=== PATIENT | male | born 1965 | race Caucasian/White ===

== ENCOUNTER 2017-08-05 06:30 | Outpatient (CLI) | payer OTHER ==
[~2017-08-05 06:30] MED LIST: CELEXA10 MG; CELEXA20 MG; CELEXA20 MG PO; COZAAR50 MG; COZAAR50 MG PO; GEMFIBROZIL600 MG; GEMFIBROZIL600 MG PO; GLIMEPIRIDE4 MG; GLIMEPIRIDE4 MG PO; GLUMETZA1000 MG PO; HYDROCHLOROTH12.5 M1 PO; HYDROCHLOROTH12.5 MG; HYDROCHLOROTH12.5 MG PO; IBUPROFEN800 MG PO; JANUMET XR 1001 EACH; JANUMET XR 1001 EACH PO; LEVAQUIN750 MG PO; METFORMIN 1000MG PO; METFORMIN HCL1000 MG PO; SEPTRA DS TABLE1 TAB PO; VOLTAREM 50 MG
== END 2017-08-05 06:48 | disposition home or self-care (01) ==
LOC: LAB 06:30
DX: E11.65 Type 2 diabetes mellitus with hyperglycemia (principal)

== ENCOUNTER 2017-11-04 07:06 | Outpatient (CLI) | payer OTHER | END 2017-11-04 07:11 | disposition home or self-care (01) | LOC: LAB 07:06 | DX: E11.65 Type 2 diabetes mellitus with hyperglycemia (principal) ==

== ENCOUNTER → 2018-03-06 06:31 | Outpatient (CLI) | payer OTHER | END | disposition home or self-care (01) | LOC: LAB 06:31 | DX: E78.2 Mixed hyperlipidemia (principal); E89.0 Postprocedural hypothyroidism; E11.65 Type 2 diabetes mellitus with hyperglycemia ==

== ENCOUNTER 2018-07-07 06:53 | Outpatient (CLI) | payer OTHER | END 2018-07-07 09:10 | disposition home or self-care (01) | LOC: LAB 06:53 | DX: E11.65 Type 2 diabetes mellitus with hyperglycemia (principal); E78.00 Pure hypercholesterolemia, unspecified ==

== ENCOUNTER 2018-10-06 06:31 | Outpatient (CLI) | payer OTHER | END 2018-10-06 09:30 | disposition home or self-care (01) | LOC: LAB 06:31 | DX: E03.8 Other specified hypothyroidism (principal); E11.65 Type 2 diabetes mellitus with hyperglycemia; E73.0 Congenital lactase deficiency; N41.8 Other inflammatory diseases of prostate ==

== ENCOUNTER 2018-11-27 08:18 | Emergency (ER) | payer OTHER ==
[~2018-11-27] VITALS: Ht 182.9 cm; Wt 115.2 kg
[2018-11-27] MEDS ORDERED: ATACAND16 MG (09:54)
[2018-11-27] MEDS ORDERED: FARXIGA10 MG (09:54)
[2018-11-27] MEDS ORDERED: MEDROLPACK PO (12:23)
== END 2018-11-27 12:30 | disposition home or self-care (01) ==
LOC: ER 08:18
DX: G51.0 Bell's palsy (principal); I10 Essential (primary) hypertension; R68.89 Other general symptoms and signs; I87.2 Venous insufficiency (chronic) (peripheral)

== ENCOUNTER 2019-01-01 09:07 | Outpatient (CLI) | payer OTHER ==
[~2019-01-01 09:07] MED LIST changes: +ATACAND16 MG; +FARXIGA10 MG; +MEDROLPACK PO
== END 2019-01-01 09:11 | disposition home or self-care (01) ==
LOC: CERTIFICAD 09:07 → LAB 09:07
DX: Z11.3 Encounter for screening for infections with a predominantly sexual mode of transmission (principal)

== ENCOUNTER 2019-02-08 06:52 | Outpatient (CLI) | payer OTHER | END 2019-02-08 06:59 | disposition home or self-care (01) | LOC: LAB 06:52 | DX: E11.65 Type 2 diabetes mellitus with hyperglycemia (principal); E78.00 Pure hypercholesterolemia, unspecified ==

== ENCOUNTER 2019-05-10 07:26 | Outpatient (CLI) | payer OTHER | END 2019-05-10 15:25 | disposition home or self-care (01) | LOC: LAB 07:26 | DX: E11.65 Type 2 diabetes mellitus with hyperglycemia (principal); E78.00 Pure hypercholesterolemia, unspecified ==

== ENCOUNTER 2019-07-15 08:44 | Outpatient (CLI) | payer OTHER | END 2019-07-15 14:22 | disposition home or self-care (01) | LOC: LAB 08:44 | DX: J11.1 Influenza due to unidentified influenza virus with other respiratory manifestations (principal); J06.9 Acute upper respiratory infection, unspecified ==

== ENCOUNTER 2019-09-29 10:39 | Outpatient (CLI) | payer OTHER | END 2019-09-29 15:52 | disposition home or self-care (01) | LOC: MRI 10:39 | DX: M51.26 Other intervertebral disc displacement, lumbar region (principal); M51.36 Other intervertebral disc degeneration, lumbar region | CPT/HCPCS: 72148 ==

== ENCOUNTER 2019-10-19 07:53 | Outpatient (CLI) | payer OTHER | END 2019-10-19 12:58 | disposition home or self-care (01) | LOC: LAB 07:53 | DX: G62.89 Other specified polyneuropathies (principal); R20.2 Paresthesia of skin; E03.8 Other specified hypothyroidism; E11.9 Type 2 diabetes mellitus without complications; E78.1 Pure hyperglyceridemia ==

== ENCOUNTER 2020-01-31 07:40 | Outpatient (CLI) | payer OTHER | END 2020-01-31 15:00 | disposition home or self-care (01) | LOC: LAB 07:40 | DX: I10 Essential (primary) hypertension (principal) ==

== ENCOUNTER 2020-02-15 09:00 | Outpatient (CLI) | payer OTHER | END 2020-02-15 18:00 | disposition home or self-care (01) | LOC: PPH VACUNA 09:00 | DX: Z23 Encounter for immunization (principal) ==

== ENCOUNTER 2020-03-08 14:22 | Outpatient (CLI) | payer OTHER | END 2020-03-08 14:39 | disposition home or self-care (01) | LOC: LAB 14:22 | DX: E11.65 Type 2 diabetes mellitus with hyperglycemia (principal); E05.80 Other thyrotoxicosis without thyrotoxic crisis or storm; Z12.11 Encounter for screening for malignant neoplasm of colon; Z11.4 Encounter for screening for human immunodeficiency virus [HIV] ==

== ENCOUNTER 2020-05-18 12:51 | Outpatient (CLI) | payer OTHER | END 2020-05-18 15:00 | disposition home or self-care (01) | LOC: PPH VACUNA 12:51 | DX: Z23 Encounter for immunization (principal) ==

== ENCOUNTER 2020-07-17 07:26 | Outpatient (CLI) | payer OTHER | END 2020-07-17 17:45 | disposition home or self-care (01) | LOC: LAB 07:26 | PROVIDERS: ATTEND Internal Medicine | DX: E03.8 Other specified hypothyroidism (principal); E11.65 Type 2 diabetes mellitus with hyperglycemia; E78.49 Other hyperlipidemia; I10 Essential (primary) hypertension ==

== ENCOUNTER 2020-10-16 07:31 | Outpatient (CLI) | payer OTHER | END 2020-10-16 07:55 | disposition home or self-care (01) | LOC: LAB 07:31 | PROVIDERS: ATTEND Internal Medicine | DX: E11.65 Type 2 diabetes mellitus with hyperglycemia (principal); I10 Essential (primary) hypertension ==

== ENCOUNTER 2020-12-28 14:21 | Outpatient (CLI) | payer OTHER | END 2020-12-28 15:43 | disposition home or self-care (01) | LOC: MRI 14:21 | PROVIDERS: ATTEND Physical Medicine & Rehabilitation | DX: M54.5 Low back pain (principal); M54.16 Radiculopathy, lumbar region | CPT/HCPCS: 72148 ==

== ENCOUNTER 2021-01-16 07:35 | Outpatient (CLI) | payer OTHER | END 2021-01-16 07:39 | disposition home or self-care (01) | LOC: LAB 07:35 | PROVIDERS: ATTEND Internal Medicine | DX: E11.65 Type 2 diabetes mellitus with hyperglycemia (principal); E03.8 Other specified hypothyroidism; I10 Essential (primary) hypertension; E78.89 Other lipoprotein metabolism disorders ==

== ENCOUNTER 2021-01-18 13:56 | Outpatient (CLI) | payer OTHER | END 2021-01-18 14:14 | disposition home or self-care (01) | LOC: TOM 13:56 | PROVIDERS: ATTEND Physical Medicine & Rehabilitation | DX: M54.5 Low back pain (principal) ==

== ENCOUNTER 2021-02-26 07:25 | Outpatient (CLI) | payer OTHER | END 2021-02-26 07:28 | disposition home or self-care (01) | LOC: RAD 07:25 | PROVIDERS: ATTEND Physical Medicine & Rehabilitation | DX: M54.5 Low back pain (principal); M54.16 Radiculopathy, lumbar region ==

== ENCOUNTER 2021-03-06 08:00 | Outpatient (CLI) | payer OTHER | END 2021-03-06 08:30 | disposition home or self-care (01) | LOC: PPH VACUNA 08:00 | PROVIDERS: ATTEND Emergency Medicine Pediatric Emergency Medicine | DX: Z23 Encounter for immunization (principal) ==

== ENCOUNTER 2021-05-01 06:51 | Outpatient (CLI) | payer OTHER | END 2021-05-01 06:56 | disposition home or self-care (01) | LOC: LAB 06:51 | PROVIDERS: ATTEND Internal Medicine | DX: I10 Essential (primary) hypertension (principal); E78.49 Other hyperlipidemia; E11.65 Type 2 diabetes mellitus with hyperglycemia ==

== ENCOUNTER 2021-05-21 09:00 | Outpatient (CLI) | payer OTHER | END 2021-05-21 09:15 | disposition home or self-care (01) | LOC: PPH VACUNA 09:00 | PROVIDERS: ATTEND Emergency Medicine Pediatric Emergency Medicine | DX: Z23 Encounter for immunization (principal) ==

== ENCOUNTER 2021-07-31 07:30 | Outpatient (CLI) | payer OTHER | END 2021-07-31 15:09 | disposition home or self-care (01) | LOC: LAB 07:30 | PROVIDERS: ATTEND Internal Medicine | DX: E11.65 Type 2 diabetes mellitus with hyperglycemia (principal); E78.5 Hyperlipidemia, unspecified; I10 Essential (primary) hypertension ==

== ENCOUNTER 2021-12-11 07:28 | Outpatient (CLI) | payer OTHER | END 2021-12-11 07:34 | disposition home or self-care (01) | LOC: LAB 07:28 | PROVIDERS: ATTEND Internal Medicine | DX: E03.8 Other specified hypothyroidism (principal); E11.65 Type 2 diabetes mellitus with hyperglycemia; I10 Essential (primary) hypertension ==

== ENCOUNTER 2022-03-08 13:11 | Outpatient (CLI) | payer OTHER | END 2022-03-08 13:12 | disposition home or self-care (01) | LOC: PPH VACUNA 13:11 | PROVIDERS: ATTEND Emergency Medicine Pediatric Emergency Medicine | DX: Z23 Encounter for immunization (principal) ==

== ENCOUNTER 2022-03-12 08:15 | Outpatient (CLI) | payer OTHER | END 2022-03-12 08:17 | disposition home or self-care (01) | LOC: LAB 08:15 | DX: E78.00 Pure hypercholesterolemia, unspecified (principal); I10 Essential (primary) hypertension; K85.90 Acute pancreatitis without necrosis or infection, unspecified ==

== ENCOUNTER 2022-03-12 09:33 | Outpatient (CLI) | payer OTHER | END 2022-03-12 10:00 | disposition home or self-care (01) | LOC: TOM 09:33 | DX: K85.00 Idiopathic acute pancreatitis without necrosis or infection (principal) ==

== ENCOUNTER 2022-03-27 07:58 | Outpatient (CLI) | payer OTHER | END 2022-03-27 08:09 | disposition home or self-care (01) | LOC: LAB 07:58 | PROVIDERS: ATTEND Urology | DX: N30.10 Interstitial cystitis (chronic) without hematuria (principal); R31.1 Benign essential microscopic hematuria ==

== ENCOUNTER 2022-06-06 07:16 | Outpatient (CLI) | payer OTHER | END 2022-06-06 07:19 | disposition home or self-care (01) | LOC: EDBD 07:16 → NUCLEAR 07:16 | PROVIDERS: ATTEND Surgery | DX: K58.0 Irritable bowel syndrome with diarrhea (principal); Z12.11 Encounter for screening for malignant neoplasm of colon | CPT/HCPCS: 78227; A9537; J2805 ==

== ENCOUNTER 2022-07-01 06:48 | Day surgery (SDC) | payer OTHER | END 2022-07-01 11:00 | disposition home or self-care (01) | LOC: AMB-ENDOS 06:48 | PROVIDERS: ATTEND Surgery | DX: K63.5 Polyp of colon (principal); K57.30 Diverticulosis of large intestine without perforation or abscess without bleeding; K64.8 Other hemorrhoids; K58.0 Irritable bowel syndrome with diarrhea; K21.9 Gastro-esophageal reflux disease without esophagitis; K57.10 Diverticulosis of small intestine without perforation or abscess without bleeding; K29.90 Gastroduodenitis, unspecified, without bleeding; Z20.822 Contact with and (suspected) exposure to COVID-19 ==

== ENCOUNTER → 2022-07-10 08:01 | Outpatient (CLI) | payer OTHER | END | disposition home or self-care (01) | LOC: LAB 08:01 | PROVIDERS: ATTEND Internal Medicine | DX: E11.65 Type 2 diabetes mellitus with hyperglycemia (principal); E03.8 Other specified hypothyroidism; E78.5 Hyperlipidemia, unspecified; I10 Essential (primary) hypertension; K85.90 Acute pancreatitis without necrosis or infection, unspecified ==

== ENCOUNTER 2022-07-11 07:41 | Outpatient (CLI) | payer OTHER | END 2022-07-11 07:46 | disposition home or self-care (01) | LOC: SONOGRAMA 07:41 | PROVIDERS: ATTEND Physical Medicine & Rehabilitation | DX: M25.512 Pain in left shoulder (principal); K85.90 Acute pancreatitis without necrosis or infection, unspecified ==

== ENCOUNTER 2022-10-09 07:57 | Outpatient (CLI) | payer OTHER | END 2022-10-09 07:58 | disposition home or self-care (01) | LOC: LAB 07:57 | PROVIDERS: ATTEND Emergency Medicine | DX: R10.9 Unspecified abdominal pain (principal); R10.84 Generalized abdominal pain ==

== ENCOUNTER 2023-02-11 07:47 | Outpatient (CLI) | payer OTHER | END 2023-02-11 08:00 | disposition home or self-care (01) | LOC: LAB 07:47 | PROVIDERS: ATTEND Internal Medicine | DX: E11.65 Type 2 diabetes mellitus with hyperglycemia (principal); E03.8 Other specified hypothyroidism; I10 Essential (primary) hypertension; E78.5 Hyperlipidemia, unspecified ==

== ENCOUNTER 2023-02-21 09:10 | Outpatient (CLI) | payer OTHER | END 2023-02-21 09:20 | disposition home or self-care (01) | LOC: PPH VACUNA 09:10 | PROVIDERS: ATTEND Emergency Medicine Pediatric Emergency Medicine | DX: Z23 Encounter for immunization (principal) ==

== ENCOUNTER 2023-04-03 13:56 | Emergency (ER) | payer OTHER ==
[~2023-04-03] VITALS: Ht 182.9 cm; Wt 72.6 kg
[2023-04-03] MEDS ORDERED: NEURONTIN800 MG (14:14)
[2023-04-03] MEDS ORDERED: GLIMEPIRIDE4 MG (14:14)
[2023-04-03] MEDS ORDERED: LOSARTAN-HCTZ1 EACH (14:14)
== END 2023-04-03 15:33 | disposition home or self-care (01) ==
LOC: ER 13:56
DX: M54.9 Dorsalgia, unspecified (principal); M54.2 Cervicalgia

== ENCOUNTER → 2023-04-17 12:20 | Outpatient (CLI) | payer OTHER ==
[~2023-04-17 12:20] MED LIST changes: +LOSARTAN-HCTZ1 EACH; +NEURONTIN800 MG
[2023-04-17 13:08] LABS: HEMATOCRIT 49.7 % (39.0-48.0); MEAN CELL VOLUME 97.1 fL (80.0-100.00); MEAN CORPUSCULAR HEMOGLOBIN 33.2 pg (27.00-32.0); MEAN CORPUSCULAR HGB CONC 34.2 g/dl (32.0-36.0); PLATELET COUNT 238 K/uL (150-450); RED BLOOD COUNT 5.11 M/uL (4.00-6.00); RED CELL DISTRIBUTION WIDTH 14.4 % (11.5-14.5)
[2023-04-17 13:44] LABS: ALBUMIN 3.8 gm/dL (3.4-5.0); BILIRUBIN TOTAL 0.86 mg/dL (0.3-1.2); BILIRUBIN,CONJUGATED 0.27 mg/dL (0.0-0.2); BILIRUBIN,UNCONJUGATED 0.59 mg/dL (0.0-0.6); CALCIUM 9.2 mg/dL (8.5-10.1); CREATININE SERUM 0.99 mg/dL (0.70-1.30); GFR 78.2; GLOBULINA 3.4 G/DL (2.4-3.5); POTASSIUM 4.11 mEq/L (3.5-5.1); TOTAL PROTEIN 7.2 gm/dL (6.4-8.2)
== END | disposition home or self-care (01) ==
LOC: LAB 12:20
PROVIDERS: ATTEND General Practice
DX: R10.9 Unspecified abdominal pain (principal)

== ENCOUNTER → 2023-05-14 07:24 | Outpatient (CLI) | payer OTHER ==
[2023-05-14 07:45] LABS: HEMATOCRIT 46.5 % (39.0-48.0); HEMOGLOBIN 16.2 g/dL (13-16.00); MEAN CELL VOLUME 95.8 fL (80.0-100.00); MEAN CORPUSCULAR HEMOGLOBIN 33.3 pg (27.00-32.0); MEAN CORPUSCULAR HGB CONC 34.8 g/dl (32.0-36.0); PLATELET COUNT 261 K/uL (150-450); RED BLOOD COUNT 4.86 M/uL (4.00-6.00)
[2023-05-14 08:21] LABS: PH,URINE 5.5 (5.0-8.0); URINE APPEARANCE Clear; URINE BILIRRUBIN Small (NEGATIVE); URINE BLOOD Negative; URINE COLOR Dark Yellow; URINE GLUCOSE Negative (NEGATIVE); URINE LEUKOCYTE Trace; URINE NITRATE Negative
[2023-05-14 08:21] LABS: ALBUMIN 3.8 gm/dL (3.4-5.0); BILIRUBIN TOTAL 0.83 mg/dL (0.3-1.2); CALCIUM 9.3 mg/dL (8.5-10.1); CREATININE SERUM 0.85 mg/dL (0.70-1.30); GFR 93.24; GLOBULINA 3.2 G/DL (2.4-3.5); POTASSIUM 3.92 mEq/L (3.5-5.1)
[2023-05-14 08:23] LABS: URINE BACTERIA 1005.4 uL (0.0-1933); URINE EPITHELIAL CELLS 11.8 uL (0.0-38.8); URINE RBC 13.9 uL (0.0-20.8); URINE WBC 10.3 uL (0.0-23.2)
[2023-05-14 08:27] LABS: URINE PROTEIN 300 (NEGATIVE)
== END | disposition home or self-care (01) ==
LOC: LAB 07:24
PROVIDERS: ATTEND Internal Medicine
DX: E11.65 Type 2 diabetes mellitus with hyperglycemia (principal); E78.5 Hyperlipidemia, unspecified; I10 Essential (primary) hypertension; E55.9 Vitamin D deficiency, unspecified

== ENCOUNTER 2023-07-14 09:18 | Emergency (ER) | payer OTHER ==
[~2023-07-14] VITALS: Ht 182.9 cm; Wt 68.5 kg
[2023-07-14] MEDS ORDERED: KETOROLAC TROMETHAMINE 60 MG VIAL IM ONE (09:45)
[2023-07-14 10:24] LABS: HEMATOCRIT 45.7 % (39.0-48.0); HEMOGLOBIN 15.6 g/dL (13-16.00); MEAN CELL VOLUME 98.1 fL (80.0-100.00); MEAN CORPUSCULAR HEMOGLOBIN 33.4 pg (27.00-32.0); MEAN CORPUSCULAR HGB CONC 34.1 g/dl (32.0-36.0); PLATELET COUNT 281 K/uL (150-450); RED BLOOD COUNT 4.66 M/uL (4.00-6.00); RED CELL DISTRIBUTION WIDTH 14.5 % (11.5-14.5)
[2023-07-14 10:44] LABS: PH,URINE 7.5 (5.0-8.0); URINE APPEARANCE Clear; URINE BILIRRUBIN Negative (NEGATIVE); URINE BLOOD Negative; URINE COLOR Dark Yellow; URINE GLUCOSE Negative (NEGATIVE); URINE LEUKOCYTE Negative; URINE NITRATE Negative
[2023-07-14 10:49] LABS: URINE BACTERIA 7.5 uL (0.0-1933); URINE EPITHELIAL CELLS 3.3 uL (0.0-38.8); URINE WBC 3.3 uL (0.0-23.2)
[2023-07-14 10:52] LABS: URINE PROTEIN 100 (NEGATIVE)
[2023-07-14 10:54] LABS: CALCIUM 9.6 mg/dL (8.5-10.1); CREATININE SERUM 0.78 mg/dL (0.70-1.30); GFR 102.96; POTASSIUM 4.05 mEq/L (3.5-5.1)
[2023-07-14] MEDS ORDERED: MEPERIDINE HCL/PF 25 MG/ML VIAL IV ONE (15:00)
== END 2023-07-14 15:13 | disposition home or self-care (01) ==
LOC: ER 09:18
PROVIDERS: Emergency Medicine
DX: M54.40 Lumbago with sciatica, unspecified side (principal); K76.0 Fatty (change of) liver, not elsewhere classified; R10.32 Left lower quadrant pain; E11.9 Type 2 diabetes mellitus without complications; Z79.84 Long term (current) use of oral hypoglycemic drugs; I10 Essential (primary) hypertension

== ENCOUNTER 2023-08-13 07:58 | Outpatient (CLI) | payer OTHER ==
[2023-08-13 08:58] LABS: HEMATOCRIT 45.8 % (39.0-48.0); HEMOGLOBIN 15.9 g/dL (13-16.00); MEAN CELL VOLUME 97.4 fL (80.0-100.00); MEAN CORPUSCULAR HEMOGLOBIN 33.9 pg (27.00-32.0); MEAN CORPUSCULAR HGB CONC 34.7 g/dl (32.0-36.0); PLATELET COUNT 248 K/uL (150-450); RED CELL DISTRIBUTION WIDTH 14.3 % (11.5-14.5)
[2023-08-13 09:35] LABS: ALBUMIN 3.7 gm/dL (3.4-5.0); BILIRUBIN TOTAL 0.7 mg/dL (0.3-1.2); CALCIUM 9.3 mg/dL (8.5-10.1); CREATININE SERUM 0.83 mg/dL (0.70-1.30); GFR 95.84; GLOBULINA 3.5 G/DL (2.4-3.5); POTASSIUM 4.27 mEq/L (3.5-5.1); TOTAL PROTEIN 7.2 gm/dL (6.4-8.2)
== END 2023-08-13 14:21 | disposition home or self-care (01) ==
LOC: LAB 07:58
PROVIDERS: ATTEND Internal Medicine
DX: E11.65 Type 2 diabetes mellitus with hyperglycemia (principal); I10 Essential (primary) hypertension

== ENCOUNTER 2023-11-25 07:27 | Outpatient (CLI) | payer OTHER ==
[2023-11-25 08:06] LABS: HEMATOCRIT 45.1 % (39.0-48.0); HEMOGLOBIN 15.6 g/dL (13-16.00); MEAN CELL VOLUME 96.3 fL (80.0-100.00); MEAN CORPUSCULAR HEMOGLOBIN 33.4 pg (27.00-32.0); MEAN CORPUSCULAR HGB CONC 34.7 g/dl (32.0-36.0); PLATELET COUNT 267 K/uL (150-450); RED BLOOD COUNT 4.68 M/uL (4.00-6.00); RED CELL DISTRIBUTION WIDTH 14.5 % (11.5-14.5)
[2023-11-25 08:12] LABS: PH,URINE 5.5 (5.0-8.0); URINE APPEARANCE Clear; URINE BILIRRUBIN Negative (NEGATIVE); URINE BLOOD Negative; URINE COLOR Dark Yellow; URINE GLUCOSE Negative (NEGATIVE); URINE LEUKOCYTE Negative; URINE NITRATE Negative
[2023-11-25 08:16] LABS: URINE BACTERIA 13.8 uL (0.0-1933); URINE EPITHELIAL CELLS 2.7 uL (0.0-38.8); URINE RBC 9.9 uL (0.0-20.8); URINE WBC 2.6 uL (0.0-23.2)
[2023-11-25 08:37] LABS: URINE PROTEIN 300 (NEGATIVE)
[2023-11-25 08:44] LABS: ALBUMIN 3.7 gm/dL (3.4-5.0); BILIRUBIN TOTAL 0.65 mg/dL (0.3-1.2); CALCIUM 9.4 mg/dL (8.5-10.1); CREATININE SERUM 0.9 mg/dL (0.70-1.30); GFR 87.29; GLOBULINA 3.6 G/DL (2.4-3.5); POTASSIUM 4.35 mEq/L (3.5-5.1); TOTAL PROTEIN 7.3 gm/dL (6.4-8.2)
== END 2023-11-25 14:02 | disposition home or self-care (01) ==
LOC: LAB 07:27
PROVIDERS: ATTEND Internal Medicine
DX: E11.65 Type 2 diabetes mellitus with hyperglycemia (principal); E03.8 Other specified hypothyroidism; E78.5 Hyperlipidemia, unspecified

== ENCOUNTER 2024-01-16 07:45 | Outpatient (CLI) | payer OTHER ==
[2024-01-16 08:45] LABS: HEMATOCRIT 45.9 % (39.0-48.0); HEMOGLOBIN 16.1 g/dL (13-16.00); MEAN CELL VOLUME 98.8 fL (80.0-100.00); MEAN CORPUSCULAR HEMOGLOBIN 34.6 pg (27.00-32.0); PLATELET COUNT 233 K/uL (150-450); RED BLOOD COUNT 4.64 M/uL (4.00-6.00); RED CELL DISTRIBUTION WIDTH 14.4 % (11.5-14.5)
[2024-01-16 10:07] LABS: ALBUMIN 3.7 gm/dL (3.4-5.0); BILIRUBIN TOTAL 0.62 mg/dL (0.3-1.2); CALCIUM 9.6 mg/dL (8.5-10.1); CHOL HDL RATIO 2.8 (0-5.0); CREATININE SERUM 0.88 mg/dL (0.70-1.30); GFR 89.26; GLOBULINA 3.5 G/DL (2.4-3.5); POTASSIUM 4.33 mEq/L (3.5-5.1); PROSTATIC SPECIFIC ANTIGEN 0.339 NG/ML (0.010-4.00); TOTAL PROTEIN 7.2 gm/dL (6.4-8.2); TSH 1.2 uIU/mL (0.358-3.74)
== END 2024-01-16 10:36 | disposition home or self-care (01) ==
LOC: LAB 07:45
PROVIDERS: ATTEND Internal Medicine Cardiovascular Disease
DX: D64.9 Anemia, unspecified (principal); R10.9 Unspecified abdominal pain; E03.9 Hypothyroidism, unspecified; E78.5 Hyperlipidemia, unspecified; R80.9 Proteinuria, unspecified; I50.22 Chronic systolic (congestive) heart failure; N40.0 Benign prostatic hyperplasia without lower urinary tract symptoms; Z12.5 Encounter for screening for malignant neoplasm of prostate

== ENCOUNTER 2024-03-08 11:00 | Outpatient (CLI) | payer OTHER | END 2024-03-08 12:00 | disposition home or self-care (01) | LOC: PPH VACUNA 11:00 | PROVIDERS: ATTEND Emergency Medicine Pediatric Emergency Medicine | DX: Z23 Encounter for immunization (principal) ==

== ENCOUNTER 2024-03-22 08:46 | Outpatient (CLI) | payer OTHER ==
[2024-03-22 09:41] LABS: HEMATOCRIT 46.5 % (39.0-48.0); HEMOGLOBIN 16.1 g/dL (13-16.00); MEAN CELL VOLUME 96.5 fL (80.0-100.00); MEAN CORPUSCULAR HEMOGLOBIN 33.4 pg (27.00-32.0); MEAN CORPUSCULAR HGB CONC 34.6 g/dl (32.0-36.0); PLATELET COUNT 215 K/uL (150-450); RED BLOOD COUNT 4.81 M/uL (4.00-6.00); RED CELL DISTRIBUTION WIDTH 14.2 % (11.5-14.5)
[2024-03-22 11:18] LABS: ALBUMIN 3.8 gm/dL (3.4-5.0); BILIRUBIN TOTAL 0.66 mg/dL (0.3-1.2); CALCIUM 9.6 mg/dL (8.5-10.1); CREATININE SERUM 0.86 mg/dL (0.70-1.30); GFR 91.66; GLOBULINA 3.7 G/DL (2.4-3.5); POTASSIUM 4.54 mEq/L (3.5-5.1); TOTAL PROTEIN 7.5 gm/dL (6.4-8.2)
== END 2024-03-22 15:53 | disposition home or self-care (01) ==
LOC: LAB 08:46
PROVIDERS: ATTEND Internal Medicine
DX: E11.65 Type 2 diabetes mellitus with hyperglycemia (principal); E78.5 Hyperlipidemia, unspecified; I10 Essential (primary) hypertension

== ENCOUNTER 2024-05-04 08:24 | Outpatient (CLI) | payer OTHER ==
[2024-05-04 08:55] LABS: HEMATOCRIT 44.3 % (39.0-48.0); HEMOGLOBIN 15.1 g/dL (13-16.00); MEAN CELL VOLUME 97.1 fL (80.0-100.00); MEAN CORPUSCULAR HEMOGLOBIN 33.1 pg (27.00-32.0); MEAN CORPUSCULAR HGB CONC 34.1 g/dl (32.0-36.0); PLATELET COUNT 246 K/uL (150-450); RED BLOOD COUNT 4.56 M/uL (4.00-6.00); RED CELL DISTRIBUTION WIDTH 13.9 % (11.5-14.5)
[2024-05-04 10:06] LABS: ALBUMIN 3.7 gm/dL (3.4-5.0); BILIRUBIN TOTAL 0.52 mg/dL (0.3-1.2); CALCIUM 9.3 mg/dL (8.5-10.1); CHOL HDL RATIO 2.7 (0-5.0); CREATININE SERUM 1.08 mg/dL (0.70-1.30); GFR 70.47; GLOBULINA 3.8 G/DL (2.4-3.5); POTASSIUM 4.45 mEq/L (3.5-5.1); TOTAL PROTEIN 7.5 gm/dL (6.4-8.2)
== END 2024-05-04 08:25 | disposition home or self-care (01) ==
LOC: LAB 08:24
PROVIDERS: ATTEND Internal Medicine
DX: E11.65 Type 2 diabetes mellitus with hyperglycemia (principal); E78.5 Hyperlipidemia, unspecified

== ENCOUNTER 2024-07-21 07:52 | Outpatient (CLI) | payer OTHER ==
[2024-07-21 08:26] LABS: HEMATOCRIT 49.3 % (39.0-48.0); HEMOGLOBIN 16.4 g/dL (13-16.00); MEAN CELL VOLUME 98.2 fL (80.0-100.00); MEAN CORPUSCULAR HEMOGLOBIN 32.6 pg (27.00-32.0); MEAN CORPUSCULAR HGB CONC 33.2 g/dl (32.0-36.0); PLATELET COUNT 233 K/uL (150-450); RED BLOOD COUNT 5.02 M/uL (4.00-6.00)
[2024-07-21 08:34] LABS: URINE APPEARANCE Clear; URINE BILIRRUBIN Negative (NEGATIVE); URINE BLOOD Negative; URINE COLOR Yellow; URINE GLUCOSE Negative (NEGATIVE); URINE KETONE Trace (NEGATIVE); URINE LEUKOCYTE Negative; URINE NITRATE Negative
[2024-07-21 08:39] LABS: URINE EPITHELIAL CELLS 2.3 uL (0.0-38.8); URINE RBC 4.7 uL (0.0-20.8); URINE WBC 3.1 uL (0.0-23.2)
[2024-07-21 09:47] LABS: URINE BACTERIA 3.6 uL (0.0-1933); URINE PROTEIN 100 (NEGATIVE)
[2024-07-21 09:56] LABS: ALBUMIN 3.6 gm/dL (3.4-5.0); BILIRUBIN TOTAL 0.62 mg/dL (0.3-1.2); CALCIUM 9.6 mg/dL (8.5-10.1); CHOL HDL RATIO 2.3 (0-5.0); CREATININE SERUM 0.89 mg/dL (0.70-1.30); GFR 88.1; GLOBULINA 3.7 G/DL (2.4-3.5); POTASSIUM 4.43 mEq/L (3.5-5.1); TOTAL PROTEIN 7.3 gm/dL (6.4-8.2); TSH 1.7 uIU/mL (0.358-3.74)
== END 2024-07-21 12:01 | disposition home or self-care (01) ==
LOC: LAB 07:52
PROVIDERS: ATTEND Internal Medicine Cardiovascular Disease
DX: D64.9 Anemia, unspecified (principal); N39.0 Urinary tract infection, site not specified; R10.9 Unspecified abdominal pain; E03.9 Hypothyroidism, unspecified; E78.5 Hyperlipidemia, unspecified; R80.9 Proteinuria, unspecified; E11.9 Type 2 diabetes mellitus without complications; R73.09 Other abnormal glucose

== ENCOUNTER → 2024-11-02 08:45 | Outpatient (CLI) | payer OTHER ==
[2024-11-03 05:07] LABS: HEPATITIS A ANTIBODY IGG Negative (Negative); HEPATITIS B SURFACE ANTIBODY Non Reactive (.); HEPATITIS C VIRUS ANTIBODY Non Reactive (Non Reactive)
== END | disposition home or self-care (01) ==
LOC: LAB 08:45
DX: A64 Unspecified sexually transmitted disease (principal); B19.9 Unspecified viral hepatitis without hepatic coma

== ENCOUNTER 2024-11-03 07:40 | Outpatient (CLI) | payer OTHER ==
[2024-11-03 08:27] LABS: BASO % 0.7 % (0.1-1.2); EOS # 0.47 (0.04-0.54); EOS % 6.8 % (0.7-7.0); HEMATOCRIT 48.3 % (40.1-51.0); HEMOGLOBIN 16.5 g/dL (13.7-17.5); LYMPH # 2.66 (1.18-3.74); LYMPH % 38.3 % (19.3-53.1); MEAN CORPUSCULAR HEMOGLOBIN 32.9 pg (25.6-32.2); MONO # 0.77 (0.24-0.82); MONO % 11.1 % (4.7-12.5); NEUT # 2.97 (1.56-6.13); NEUT % 42.8 % (34.0-71.1); PLATELET COUNT 257 K/uL (163-369); RED BLOOD COUNT 5.02 M/uL (4.63-6.08); RED CELL DISTRIBUTION WIDTH 14.1 % (11.6-14.4)
[2024-11-03 12:14] LABS: ALBUMIN 3.6 gm/dL (3.4-5.0); BILIRUBIN TOTAL 0.62 mg/dL (0.3-1.2); CALCIUM 9.3 mg/dL (8.5-10.1); CHOL HDL RATIO 2.9 (0-5.0); CREATININE SERUM 0.9 mg/dL (0.70-1.30); GFR 86.98; GLOBULINA 3.7 G/DL (2.4-3.5); POTASSIUM 4.45 mEq/L (3.5-5.1); TOTAL PROTEIN 7.3 gm/dL (6.4-8.2); TSH 2.05 uIU/mL (0.358-3.74)
== END 2024-11-03 07:41 | disposition home or self-care (01) ==
LOC: LAB 07:40
PROVIDERS: ATTEND Internal Medicine
DX: E11.65 Type 2 diabetes mellitus with hyperglycemia (principal); E78.5 Hyperlipidemia, unspecified; E03.8 Other specified hypothyroidism

== ENCOUNTER 2025-01-19 07:41 | Outpatient (CLI) | payer OTHER ==
[2025-01-19 08:23] LABS: BASO % 0.8 % (0.1-1.2); EOS # 0.50 (0.04-0.54); EOS % 7.0 % (0.7-7.0); LYMPH # 2.64 (1.18-3.74); LYMPH % 37.0 % (19.3-53.1); MEAN PLATELET VOLUME 10.00 fl (9.4-12.4); MONO # 0.80 (0.24-0.82); MONO % 11.2 % (4.7-12.5); NEUT # 3.10 (1.56-6.13); NEUT % 43.6 % (34.0-71.1); RED CELL DISTRIBUTION WIDTH 13.3 % (11.6-14.4); URINE APPEARANCE Clear; URINE BILIRRUBIN Negative (NEGATIVE); URINE BLOOD Trace; URINE COLOR Yellow; URINE KETONE Trace (NEGATIVE); URINE LEUKOCYTE Negative; URINE NITRATE Negative; URINE UROBILINOGEN 1.0 E.U./dl
[2025-01-19 08:24] LABS: URINE BACTERIA 24.0 uL (0.0-1933); URINE EPITHELIAL CELLS 8.1 uL (0.0-38.8); URINE RBC 5.8 uL (0.0-20.8); URINE WBC 24.5 uL (0.0-23.2)
[2025-01-19 08:26] LABS: URINE CAST 0.29 uL (0.0-1.40); URINE GLUCOSE >=1000 MG/DL (NEGATIVE); URINE PROTEIN 100 (NEGATIVE)
[2025-01-19 09:39] LABS: ALT/SGPT 60.0 U/L (12-78); AST/SGOT 40.0 U/L (15-37); BILIRUBIN TOTAL 0.56 mg/dL (0.3-1.2); BUN CREA RATIO 16.0 (7.0-25.0); CHOL HDL RATIO 2.6 (0-5.0); CREATININE SERUM 0.98 mg/dL (0.70-1.30); GFR 78.56; GLOBULINA 3.8 G/DL (2.4-3.5); GLUCOSE FASTING 104.0 mg/dL (65-100); HDL 29.0 mg/dl (40-60); LDL 18.0 mg/dl (0-130); OSMOLALITY SERUM 283.0 MOSM/KG (275-295); PROSTATIC SPECIFIC ANTIGEN 1.03 NG/ML (0.010-4.00); T4 FREE 1.04 NG/ML (0.76-1.46); TSH 1.89 uIU/mL (0.358-3.74); VLDL 27.0 (0-39)
== END 2025-01-19 13:58 | disposition home or self-care (01) ==
LOC: LAB 07:41
PROVIDERS: ATTEND Internal Medicine
DX: D64.9 Anemia, unspecified (principal); N39.0 Urinary tract infection, site not specified; R10.9 Unspecified abdominal pain; E03.9 Hypothyroidism, unspecified; R80.9 Proteinuria, unspecified; E11.9 Type 2 diabetes mellitus without complications; N40.0 Benign prostatic hyperplasia without lower urinary tract symptoms; E11.65 Type 2 diabetes mellitus with hyperglycemia; E78.5 Hyperlipidemia, unspecified; E03.8 Other specified hypothyroidism

== ENCOUNTER 2025-05-16 08:05 | Outpatient (CLI) | payer OTHER ==
[2025-05-16 09:07] LABS: BASO % 0.9 % (0.1-1.2); EOS # 0.33 (0.04-0.54); EOS % 4.8 % (0.7-7.0); LYMPH # 2.98 (1.18-3.74); LYMPH % 43.1 % (19.3-53.1); MEAN PLATELET VOLUME 10.20 fl (9.4-12.4); MONO # 0.68 (0.24-0.82); MONO % 9.8 % (4.7-12.5); NEUT # 2.84 (1.56-6.13); NEUT % 41.1 % (34.0-71.1); RED CELL DISTRIBUTION WIDTH 13.2 % (11.6-14.4)
[2025-05-16 09:48] LABS: ALT/SGPT 47.0 U/L (12-78); AST/SGOT 24.0 U/L (15-37); BILIRUBIN TOTAL 0.68 mg/dL (0.3-1.2); BUN CREA RATIO 16.0 (7.0-25.0); CHOL HDL RATIO 2.2 (0-5.0); CREATININE SERUM 0.91 mg/dL (0.70-1.30); GFR 85.57; GLOBULINA 4.0 G/DL (2.4-3.5); GLUCOSE FASTING 89.0 mg/dL (65-100); HDL 33.0 mg/dl (40-60); LDL 24.0 mg/dl (0-130); OSMOLALITY SERUM 282.0 MOSM/KG (275-295); TSH 1.33 uIU/mL (0.358-3.74); VLDL 17.0 (0-39)
== END 2025-05-16 08:27 | disposition home or self-care (01) ==
LOC: LAB 08:05
PROVIDERS: ATTEND Internal Medicine
DX: E11.65 Type 2 diabetes mellitus with hyperglycemia (principal); I10 Essential (primary) hypertension; E78.9 Disorder of lipoprotein metabolism, unspecified